=== PATIENT | male | born 1955 | race Caucasian/White ===

== ENCOUNTER 2017-05-07 16:13 | Emergency (ER) | payer MEDICARE ==
[~2017-05-07] VITALS: Ht 177.8 cm; Wt 86.9 kg
[~2017-05-07 16:13] MED LIST: ACET325T14 PO; CARB200T PO; DIVA-68 PO; ENOX40SY4 SQ; FENT1PAT76 TD; FLUO20CA8 PO; FLUO40CA2 PO; FLUO40CA9 PO; GABA-826 PO; GABA300C10 PO; HYDR1TAB12 PO; HYDR25CA PO; LAMO100T5 PO; LEVE500T53 PO; LEVO500T33 PO; MAGN400T26 PO; OLAN10TA9 PO; OLAN5TAB9 PO; OXYC-229 PO; OXYM20TA13 PO; PHEN16.298 PO; PROP10TA PO; PROP60CA8 PO; PROP80CA39 PO; QUET100T4 PO; TEST1.25 TD; TRAM50TA2 PO; [UNRECOGNIZED DRUG - CODE] PO; [UNRECOGNIZED DRUG - CODE] PR
[2017-05-07 17:02] LABS: BLOOD UREA NITROGEN 17 mg/dL (7-18)
[2017-05-07 17:49] VITALS: BP 140/85
== END 2017-05-07 19:11 | disposition home or self-care (01) ==
LOC: ED 18:30
DX: M19.021 Primary osteoarthritis, right elbow (principal); M77.01 Medial epicondylitis, right elbow; Z86.711 Personal history of pulmonary embolism
CPT/HCPCS: 36415; 80048; 85025; 99285

== ENCOUNTER → 2018-10-27 | Outpatient (CLI) | payer MEDICARE ==
[~2018-10-27] MED LIST changes: +DIVA-61 PO; -DIVA-68 PO; -LEVO500T33 PO; +LEVO500T47 PO; -OXYC-229 PO; +OXYC-307 PO; +PHEN-484 PO; -PHEN16.298 PO; -PROP10TA PO; +PROP10TA16 PO
== END | disposition home or self-care (01) ==
LOC: CFH 15:26
PROVIDERS: ATTEND Internal Medicine
DX: I35.0 Nonrheumatic aortic (valve) stenosis (principal); I34.8 Other nonrheumatic mitral valve disorders; I10 Essential (primary) hypertension
CPT/HCPCS: 93306